=== PATIENT | male | born 1945 | race Caucasian/White ===

== ENCOUNTER 2018-02-09 21:40 | Inpatient (IN) | payer OTHER, MEDICARE, BC ==
[2018-02-09 22:14] LABS: INR 2.09 (0.86-1.12)
[2018-02-09 23:16] LABS: ALBUMIN 3.6 gm/dl (3.4-5.0); BILIRUBIN,TOTAL 1.5 mg/dl (0.2-1.0); CALCIUM 8.7 mg/dl (8.5-10.1); CARBON DIOXIDE 29.8 mEq/L (21-32); CREATININE 1.52 mg/dl (0.80-1.30); POTASSIUM 3.8 mMol/L (3.5-5.1); TOTAL PROTEIN 7.3 gm/dl (6.4-8.2); TROP I 0.516 ng/ml (0.000-0.056)
[2018-02-09] MEDS ORDERED: METOPROLOL SUCCINATE 50 MG ER TAB PO ONE (23:59)
[2018-02-10] MEDS ORDERED: LISINOPRIL 20 MG TAB ONE (00:04)
[2018-02-10] MEDS ORDERED: FUROSEMIDE 20mg SOL IV ONE (00:49)
[2018-02-10] MEDS ORDERED: WARFARIN SODIUM 5 MG TAB PO SCH ×2 (01:30→21:00)
[2018-02-10 08:11] LABS: BASOPHILS % (AUTO) 1 % (0-3); EOSINOPHILS % (AUTO) 2 % (0-9); HEMATOCRIT 48 % (39-53); HEMOGLOBIN 15.6 gm/dl (13.5-17.7); LYMPHOCYTES % (AUTO) 30.5 % (10-50); MEAN CORPUSCULAR HEMOGLOBIN 30.7 pg (27.0-32.0); MEAN CORPUSCULAR HGB CONC 32.7 gm/dl (32.0-36.0); MEAN CORPUSCULAR VOLUME 94 fL (80-100); MONOCYTES % (AUTO) 10.4 % (0-12); NEUTROPHILS % (AUTO) 55.8 % (37-80)
[2018-02-10 08:21] LABS: ALBUMIN 3.4 gm/dl (3.4-5.0); CALCIUM 8.6 mg/dl (8.5-10.1); CARBON DIOXIDE 28.8 mEq/L (21-32); CREATININE 1.2 mg/dl (0.80-1.30); POTASSIUM 3.7 mMol/L (3.5-5.1); TOTAL PROTEIN 6.8 gm/dl (6.4-8.2)
[2018-02-10] MEDS: TAMSULOSIN HYDROCHLORIDE 0.4 MG CAP PO SCH ×2 (08:48→10:51)
[2018-02-10] MEDS: FUROSEMIDE 20mg SOL IV SCH ×2 (08:49→12:25)
[2018-02-10] MEDS ORDERED: FUROSEMIDE 40 MG TAB PO SCH (09:00)
[2018-02-10] MEDS ORDERED: ASPIRIN EC 81 MG PO SCH (09:00)
[2018-02-10] MEDS ORDERED: POTASSIUM CHLORIDE 10 MEQ TER PO SCH (09:00)
[2018-02-10] MEDS ORDERED: LISINOPRIL 20 MG TAB PO SCH ×2 (09:00)
[2018-02-10] MEDS ORDERED: METOPROLOL SUCCINATE 50 MG ER TAB PO SCH ×2 (09:00)
[2018-02-10] MEDS ORDERED: OMEPRAZOLE 20 MG CAPSULE PO SCH (09:00)
[2018-02-10] MEDS ORDERED: PANTOPRAZOLE SODIUM 40 MG ECT PO SCH (09:15)
[2018-02-10 16:56] VITALS: BP 141/91; PULSE 64; RESP 14; TEMP 97.8; O2SAT 96
[2018-02-10] MEDS ORDERED: ATORVASTATIN 10 MG TAB PO SCH (21:00)
[2018-02-10] MEDS ORDERED: TAMSULOSIN HYDROCHLORIDE 0.4 MG CAP PO SCH (21:00)
[2018-02-10] MEDS ORDERED: LATANOPROST 0.005% SOL OP SCH (21:00)
[2018-02-12] MEDS ORDERED: WARFARIN SODIUM 2.5 MG TAB PO SCH (21:00)
== END 2018-02-10 18:30 | disposition home or self-care (01) | DRG 69 ==
LOC: ED 21:40 → ACUTE CARE 02-10 00:55
PROVIDERS: ADMIT Family Medicine; ATTEND Family Medicine
DX: G45.9 Transient cerebral ischemic attack, unspecified (principal); G81.91 Hemiplegia, unspecified affecting right dominant side; R47.01 Aphasia; I50.9 Heart failure, unspecified; R06.02 Shortness of breath; R42 Dizziness and giddiness; R29.810 Facial weakness; R05 Cough; R40.2412 Glasgow coma scale score 13-15, at arrival to emergency department; Z95.0 Presence of cardiac pacemaker; Z79.01 Long term (current) use of anticoagulants
CPT/HCPCS: 36415; 70450; 71250; 80053; 83880; 84484; 85025; 85610; 93005; 99291; J1940; A9270-GY